=== PATIENT | male | born 1955 | race Caucasian/White ===

== ENCOUNTER 2017-05-15 14:54 | Emergency (ER) | payer OTHER ==
[~2017-05-15] VITALS: Ht 180.3 cm; Wt 113.4 kg
[~2017-05-15 14:54] MED LIST: ALLO300T2 PO; ENAL20TA PO; [UNRECOGNIZED DRUG - OTHER]; atenolol
[2017-05-15 15:31] VITALS: BP_SYST 141
[2017-05-15 16:05] LABS: BASOPHILS % (AUTO) 0.7 % (0.0-2.0); EOSINOPHILS # (AUTO) 0.2 K/uL (0.0-0.4); EOSINOPHILS % (AUTO) 5.1 % (0.0-4.0); HEMATOCRIT 37.2 % (36-54); HEMOGLOBIN 12.1 g/dL (14.0-18.0); LYMPHOCYTES # (AUTO) 1.3 K/uL (1.0-5.5); LYMPHOCYTES % (AUTO) 28.1 % (20.5-51.5); MEAN CORPUSCULAR HEMOGLOBIN 32 pg (27-31); MEAN CORPUSCULAR HGB CONC 32 % (32-36); MEAN CORPUSCULAR VOLUME 98 fL (79.0-98.0); MONOCYTES # (AUTO) 0.4 K/uL (0.0-1.0); MONOCYTES % (AUTO) 9.4 % (1.7-9.3); NEUTROPHILS # (AUTO) 2.7 K/uL (1.8-7.7); NEUTROPHILS % (AUTO) 56.7 % (40.0-70.0); RED BLOOD CELL COUNT(AUTO) 3.81 MIL/uL (4.2-6.2); WHITE BLOOD COUNT (AUTO) 4.6 K/uL (4.8-10.8)
[2017-05-15 16:23] LABS: POTASSIUM 5.2 mmol/L (3.5-5.1)
[2017-05-15 16:28] LABS: ALBUMIN 3.6 g/dL (3.4-4.8); TOTAL BILIRUBIN 0.4 mg/dL (0.0-1.0)
[2017-05-15 16:33] LABS: PLATELET COUNT (AUTO) 93 K/uL (130-430)
[2017-05-15 16:37] LABS: CREATININE 8.65 mg/dL (0.55-1.30)
[2017-05-15] MEDS ORDERED: SODIUM POLYSTYRENE SULFONATE 15 GM/60 ML UDBTL PO ONE (17:00)
[2017-05-15 17:36] VITALS: BP_SYST 136
== END 2017-05-15 17:39 | disposition home or self-care (01) ==
LOC: SED 14:54
DX: E87.5 Hyperkalemia (principal); E11.29 Type 2 diabetes mellitus with other diabetic kidney complication; I10 Essential (primary) hypertension; Z99.2 Dependence on renal dialysis; N19 Unspecified kidney failure
CPT/HCPCS: 36415; 80053; 85025; 93005; 99285

== ENCOUNTER 2018-04-13 07:24 | Inpatient (IN) | payer OTHER ==
[~2018-04-13] VITALS: Ht 180.3 cm; Wt 112.5 kg
[2018-04-13] VITALS (7 sets, daily range): BP systolic 110–137
[2018-04-13] MEDS ORDERED: ONDANSETRON HCL 4 MG/2 ML VIAL IVP ONE (07:45)
[2018-04-13 08:21] LABS: HEMATOCRIT 29.2 % (36-54); HEMOGLOBIN 9.9 g/dL (14.0-18.0); MEAN CORPUSCULAR HEMOGLOBIN 32 pg (27-31); MEAN CORPUSCULAR HGB CONC 34 % (32-36); MEAN CORPUSCULAR VOLUME 93 fL (79.0-98.0); PLATELET COUNT (AUTO) 50 K/uL (130-430); RED BLOOD CELL COUNT(AUTO) 3.15 MIL/uL (4.2-6.2); RED CELL DISTRIBUTION WIDTH 13.2 % (9.0-15.0); WHITE BLOOD COUNT (AUTO) 3.2 K/uL (4.8-10.8)
[2018-04-13 08:22] LABS: POTASSIUM 4.5 mmol/L (3.5-5.1)
[2018-04-13 08:25] LABS: INR 1.2 (0.80-1.20); PROTHROMBIN TIME 12.5 SECS (9.5-12.5)
[2018-04-13 08:26] LABS: ALBUMIN 2.7 g/dL (3.4-4.8); TOTAL BILIRUBIN 0.6 mg/dL (0.0-1.0)
[2018-04-13 08:34] LABS: CREATININE 9.97 mg/dL (0.55-1.30)
[2018-04-13] MEDS ORDERED: ASPIRIN 325 MG TABLET PO ONE (08:45)
[2018-04-13 08:51] LABS: BAND % (MANUAL) 11 % (0-6); LYMPHOCYTES % (MANUAL) 18 % (20-46)
[2018-04-13 08:52] LABS: BASOPHILS % (MANUAL) 0 % (0-2); EOSINOPHILS % (MANUAL) 0 % (0-7); MONOCYTES % (MANUAL) 8 % (0-11); MYELOCYTES % 2 % (0-0)
[2018-04-13] MEDS ORDERED: 70/30 SQ ×2 (08:57)
[2018-04-13] MEDS ORDERED: atorvastatin PO (08:57)
[2018-04-13] MEDS ORDERED: VANCOMYCIN HCL 1,000 MG in NS 250 ML IV ONE (09:00)
[2018-04-13] MEDS ORDERED: NS 500 ML IV ONE (09:00)
[2018-04-13] MEDS ORDERED: NACL 0.9% 1,000 ML IV ONE (09:00)
[2018-04-13] MEDS ORDERED: VANCOMYCIN HCL 1000 MG/VIAL IV ONE (09:05)
[2018-04-13] MEDS ORDERED: PIPERACILLIN/TAZO 2.25G/DEX-IS 50 ML IV ONE (13:00)
[2018-04-13] MEDS ORDERED: IPRATROPIUM/ALBUTEROL SULFATE 3 ML AMPUL.NEB INH ONE (14:45)
[2018-04-13] MEDS ORDERED: INSULIN NPH/REGULAR 70-30, 100 UNITS/ML, 10 ML VIAL SUBCUT SCH (14:45)
[2018-04-13] MEDS ORDERED: INSULIN ASPART 100 UNITS/ML, 10 ML VIAL (NovoLOG) SUBCUT PRN (16:45)
[2018-04-13] MEDS: INSULIN ASPART 100 UNITS/ML, 10 ML VIAL (NovoLOG) SUBCUT PRN ×2 (17:50→22:30)
[2018-04-13] MEDS: IPRATROPIUM/ALBUTEROL SULFATE 3 ML AMPUL.NEB INH SCH (23:40)
[2018-04-14 00:46] VITALS: BP_SYST 104
[2018-04-14] MEDS: INSULIN ASPART 100 UNITS/ML, 10 ML VIAL (NovoLOG) SUBCUT PRN ×2 (06:35→20:42)
[2018-04-14] MEDS ORDERED: INSULIN NPH/REGULAR 70-30, 100 UNITS/ML, 10 ML VIAL SUBCUT SCH (07:00)
[2018-04-14] MEDS: IPRATROPIUM/ALBUTEROL SULFATE 3 ML AMPUL.NEB INH SCH ×2 (07:17→15:19)
[2018-04-14 07:30] LABS: POTASSIUM 5.3 mmol/L (3.5-5.1)
[2018-04-14 07:36] LABS: HEMATOCRIT 28.7 % (36-54); HEMOGLOBIN 9.6 g/dL (14.0-18.0); MEAN CORPUSCULAR HEMOGLOBIN 31 pg (27-31); MEAN CORPUSCULAR HGB CONC 34 % (32-36); MEAN CORPUSCULAR VOLUME 92 fL (79.0-98.0); RED BLOOD CELL COUNT(AUTO) 3.11 MIL/uL (4.2-6.2); RED CELL DISTRIBUTION WIDTH 13.3 % (9.0-15.0); WHITE BLOOD COUNT (AUTO) 5.3 K/uL (4.8-10.8)
[2018-04-14 07:37] LABS: BASOPHILS % (AUTO) 0.6 % (0.0-2.0); EOSINOPHILS % (AUTO) 0.8 % (0.0-4.0); LYMPHOCYTES # (AUTO) 1.2 K/uL (1.0-5.5); MONOCYTES % (AUTO) 19.7 % (1.7-9.3); NEUTROPHILS % (AUTO) 56.9 % (40.0-70.0)
[2018-04-14 08:00] VITALS: BP_SYST 101
[2018-04-14 08:03] LABS: ALBUMIN 2.6 g/dL (3.4-4.8); BILIRUBIN,DIRECT 0.2 mg/dL (0.0-0.3); TOTAL BILIRUBIN 0.5 mg/dL (0.0-1.0)
[2018-04-14 08:08] LABS: CREATININE 7.98 mg/dL (0.55-1.30)
[2018-04-14] MEDS ORDERED: MIDODRINE HCL 2.5 MG TABLET (PROAMATINE) PO ONE (10:00)
[2018-04-14] MEDS ORDERED: MIDODRINE HCL 5 MG TABLET (PROAMATINE) PO ONE (11:15)
[2018-04-14 11:43] LABS: PLATELET COUNT (AUTO) 50 K/uL (130-430)
[2018-04-14 12:00] VITALS: BP_SYST 105
[2018-04-14] MEDS ORDERED: cefTRIAXone 1 GM in D5W 50 ML IV ONE (15:00)
[2018-04-14 16:00] VITALS: BP_SYST 105
[2018-04-14] MEDS: INSULIN NPH/REGULAR 70-30, 100 UNITS/ML, 10 ML VIAL SUBCUT SCH (17:00)
[2018-04-14 19:25] VITALS: BP_SYST 106
[2018-04-14] MEDS: MIDODRINE HCL 5 MG TABLET (PROAMATINE) PO SCH (20:38)
[2018-04-15 00:41] VITALS: BP_SYST 102
[2018-04-15] MEDS: IPRATROPIUM/ALBUTEROL SULFATE 3 ML AMPUL.NEB INH SCH ×3 (06:00→22:00)
[2018-04-15] MEDS: INSULIN NPH/REGULAR 70-30, 100 UNITS/ML, 10 ML VIAL SUBCUT SCH ×2 (06:33→18:01)
[2018-04-15 06:34] LABS: CALCIUM 9.1 mg/dL (8.4-11.0)
[2018-04-15] MEDS: INSULIN ASPART 100 UNITS/ML, 10 ML VIAL (NovoLOG) SUBCUT PRN ×2 (06:34→22:05)
[2018-04-15 07:05] LABS: CREATININE 10.26 mg/dL (0.55-1.30)
[2018-04-15 08:00] VITALS: BP_SYST 109
[2018-04-15] MEDS: cefTRIAXone 1 GM in D5W 50 ML IV SCH (08:24)
[2018-04-15] MEDS: MIDODRINE HCL 5 MG TABLET (PROAMATINE) PO SCH ×3 (08:24→20:14)
[2018-04-15 12:05] VITALS: BP_SYST 118
[2018-04-15] MEDS ORDERED: ACETAMINOPHEN 500 MG TABLET PO ONE (12:15)
[2018-04-15 16:05] VITALS: BP_SYST 102
[2018-04-15 20:00] VITALS: BP_SYST 100
[2018-04-15] MEDS: ACETAMINOPHEN 325 MG TABLET PO PRN (20:15)
[2018-04-15] MEDS: traMADol HCL HCL 50 MG TABLET (ULTRAM) PO PRN (22:02)
[2018-04-15 23:20] VITALS: BP_SYST 109
[2018-04-16] MEDS: ACETAMINOPHEN 325 MG TABLET PO PRN (03:08)
[2018-04-16] MEDS: IPRATROPIUM/ALBUTEROL SULFATE 3 ML AMPUL.NEB INH SCH (06:00)
[2018-04-16] MEDS: INSULIN ASPART 100 UNITS/ML, 10 ML VIAL (NovoLOG) SUBCUT PRN (06:28)
[2018-04-16] MEDS: INSULIN NPH/REGULAR 70-30, 100 UNITS/ML, 10 ML VIAL SUBCUT SCH (06:30)
[2018-04-16] MEDS: traMADol HCL HCL 50 MG TABLET (ULTRAM) PO PRN (06:47)
[2018-04-16 07:30] LABS: ALBUMIN 2.4 g/dL (3.4-4.8); CALCIUM 8.7 mg/dL (8.4-11.0); POTASSIUM 5.3 mmol/L (3.5-5.1); TOTAL BILIRUBIN 0.6 mg/dL (0.0-1.0)
[2018-04-16 07:38] LABS: CREATININE 9.06 mg/dL (0.55-1.30)
[2018-04-16 08:30] VITALS: BP_SYST 95
[2018-04-16] MEDS: MIDODRINE HCL 5 MG TABLET (PROAMATINE) PO SCH (09:02)
[2018-04-16] MEDS: cefTRIAXone 1 GM in D5W 50 ML IV SCH (09:02)
[2018-04-16 12:00] VITALS: BP_SYST 105
[2018-04-16 12:31] VITALS: BP_SYST 101
== END 2018-04-16 13:35 | disposition home or self-care (01) | DRG 202 ==
LOC: SED 07:24 → STU 09:39
PROVIDERS: ADMIT Internal Medicine; ATTEND Internal Medicine
PROC: 5A1D70Z Performance of Urinary Filtration, Intermittent, Less than 6 Hours Per Day (ICD-10-PCS; principal; 2018-04-13)
PROC: 5A1D70Z Performance of Urinary Filtration, Intermittent, Less than 6 Hours Per Day (ICD-10-PCS; 2018-04-15)
DX: J20.9 Acute bronchitis, unspecified (principal); N18.6 End stage renal disease; I12.0 Hypertensive chronic kidney disease with stage 5 chronic kidney disease or end stage renal disease; E44.0 Moderate protein-calorie malnutrition; I24.9 Acute ischemic heart disease, unspecified; J90 Pleural effusion, not elsewhere classified; Q44.6 Cystic disease of liver; Q61.2 Polycystic kidney, adult type; E66.9 Obesity, unspecified; E11.22 Type 2 diabetes mellitus with diabetic chronic kidney disease; R00.0 Tachycardia, unspecified; I95.9 Hypotension, unspecified; D69.6 Thrombocytopenia, unspecified; K76.89 Other specified diseases of liver; R16.0 Hepatomegaly, not elsewhere classified; F10.10 Alcohol abuse, uncomplicated; Z76.82 Awaiting organ transplant status; Z82.71 Family history of polycystic kidney; Z99.2 Dependence on renal dialysis; Z79.899 Other long term (current) drug therapy; Z71.41 Alcohol abuse counseling and surveillance of alcoholic; Z68.34 Body mass index [BMI] 34.0-34.9, adult
CPT/HCPCS: 36415; 36600; 71045; 76700-TC; 80048; 80053; 80076; 82105; 82150-TC; 82803-TC; 82962; 83605; 83690-TC; 83880; 84484; 85007; 85025; 85027; 85610-TC; 85730-TC; 87040-TC; 87081; 90935; 90937; 93005; 93306; 93970; 94640; 94760; 96365; 96375; 99285; J0696; J1815; J2405; J2543; J3370; J7030; J7040; J7060; J7620